=== PATIENT | female | born 1945 | race Two or more races ===

== ENCOUNTER 2017-03-10 23:16 | Emergency (ER) | payer MEDICARE, MEDICAID ==
[~2017-03-10] VITALS: Ht 157.5 cm; Wt 51.7 kg
[~2017-03-10 23:16] MED LIST: LEVO25TA9 PO
--- NOTE | 2017-03-11 00:04 | NUR ---
DR. CUBA AT BEDSIDE FOR MSE.
[2017-03-11] MEDS ORDERED: FAMOTIDINE 20 MG TABLET PO ONE (00:30)
[2017-03-11] MEDS ORDERED: predniSONE 20 MG TABLET PO ONE (00:30)
[2017-03-11] MEDS ORDERED: CETIRIZINE HCL 10 MG TABLET PO ONE (00:30)
[2017-03-11] MEDS ORDERED: CETIRIZINE HCL 10 MG TABLET ONE (00:59)
[2017-03-11] MEDS ORDERED: FAMOTIDINE 20 MG TABLET ONE (01:00)
[2017-03-11] MEDS ORDERED: predniSONE 20 MG TABLET ONE (01:00)
--- NOTE | 2017-03-11 01:06 | NUR ---
Patient discharged to home in stable conditon. Written and verbal after care instructions given. Patient verbalizes understanding of instructions. PATIENT LEFT WITH STABLE GAIT.
[2017-03-11 01:07] VITALS: BP 124/72
== END 2017-03-11 01:07 | disposition home or self-care (01) ==
LOC: ER 23:16
DX: L50.9 Urticaria, unspecified (principal)
CPT/HCPCS: A4663; J7512

== ENCOUNTER 2018-12-17 22:28 | Emergency (ER) | payer MEDICARE, MEDICAID ==
[~2018-12-17] VITALS: Ht 157.5 cm; Wt 53.1 kg
[2018-12-17] MEDS ORDERED: TDAP DIPH,PERTUSS,TET VAC/PF 0.5 ML DISP.SYRIN IM ONE ×2 (23:00→23:03)
[2018-12-17] MEDS ORDERED: NEOMY/BACITRA/POLYMYXIN B OINT UD PACKET TP ONE ×2 (23:00→23:03)
[2018-12-17] MEDS ORDERED: AMOXICILLIN-CLAVUL 875-125MG TABLET PO ONE (23:00)
[2018-12-17] MEDS ORDERED: AMOXICILLIN-CLAVUL 875-125MG TABLET ONE (23:04)
--- NOTE | 2018-12-17 23:25 | NUR ---
DPatient discharged to home in stable conditon. Written and verbal after care instructions given. Patient verbalizes understanding of instructions. patient self-ambulatory. patient personal belonging and exit care package taken with patient. Patient alert an oriented and has good understanding of medication prescription and dischage instruction.
[2018-12-17 23:29] VITALS: BP 118/75
== END 2018-12-17 23:19 | disposition home or self-care (01) ==
LOC: ER 22:28
DX: S81.851A Open bite, right lower leg, initial encounter (principal); F32.9 Major depressive disorder, single episode, unspecified; F41.9 Anxiety disorder, unspecified; Z91.041 Radiographic dye allergy status; Z79.899 Other long term (current) drug therapy; W55.01XA Bitten by cat, initial encounter; Y93.89 Activity, other specified; Y92.89 Other specified places as the place of occurrence of the external cause; Y99.8 Other external cause status
CPT/HCPCS: 90715; A4217; A4663

== ENCOUNTER 2021-07-03 16:27 | Emergency (ER) | payer MEDICARE, OTHER ==
[~2021-07-03] VITALS: Ht 157.5 cm; Wt 61.2 kg
[2021-07-03] MEDS ORDERED: OMNICEF PO (16:47)
[2021-07-03 16:53] LABS: *BILIRUBIN,URIN NEGATIVE (NEGATIVE); *CLARITY,URINE CLEAR (CLEAR); *COLOR,URINE YELLOW (YELLOW); *KETONES,URINE NEGATIVE (NEGATIVE); *UROBILINOGEN,URINE 0.2 E.U./dl (NORMAL); LEUKOCYTE ESTERASE ,URINE NEGATIVE (NEGATIVE); NITRITE, URINE NEGATIVE (NEGATIVE); UGLUCOSE NEGATIVE (NEGATIVE)
[2021-07-03 16:54] LABS: *BLOOD, URINE TRACE (NEGATIVE)
[2021-07-03] MEDS ORDERED: ESTR1VAG VG (17:12)
[2021-07-03] MEDS ORDERED: SULF1TAB48 PO (17:12)
--- NOTE | 2021-07-03 17:29 | NUR ---
patient was seen by . urine sent to lab. DC, RX AND FOLLOW UP INSTRUCTIONS GIVEN AND EXPLAINED TO PATIENT WHO STATES SHE UNDERSTANDS ALL INSTRUCTIONS
[2021-07-03 18:33] LABS: BACTERIA,URINE NONE SEEN /HPF (NONE SEEN); SQUAMOUS EPITHELIAL CELL,UR FEW /HPF (NONE SEEN); WBC,URINE 0-3 /HPF (0-3)
== END 2021-07-03 17:29 | disposition home or self-care (01) ==
LOC: ER 16:30
DX: L03.115 Cellulitis of right lower limb (principal); N39.0 Urinary tract infection, site not specified; Z87.440 Personal history of urinary (tract) infections; Z91.041 Radiographic dye allergy status
CPT/HCPCS: 87086; A4663

== ENCOUNTER 2021-09-06 17:05 | Emergency (ER) | payer MEDICARE, OTHER ==
[~2021-09-06] VITALS: Ht 157.5 cm; Wt 61.2 kg
[~2021-09-06 17:05] MED LIST changes: +ESTR1VAG VG; +OMNICEF PO; +SULF1TAB48 PO
[2021-09-06 17:27] LABS: *BILIRUBIN,URIN NEGATIVE (NEGATIVE); *BLOOD, URINE 1+ (NEGATIVE); *CLARITY,URINE CLEAR (CLEAR); *COLOR,URINE YELLOW (YELLOW); *KETONES,URINE NEGATIVE (NEGATIVE); *UROBILINOGEN,URINE 0.2 E.U./dl (NORMAL); LEUKOCYTE ESTERASE ,URINE NEGATIVE (NEGATIVE); NITRITE, URINE NEGATIVE (NEGATIVE); PH,URINE 5.5 (5.0-8.0); UGLUCOSE NEGATIVE (NEGATIVE)
[2021-09-06] MEDS ORDERED: ASPI81TA31 PO (17:33)
[2021-09-06 17:46] LABS: HEMATOCRIT 33.3 % (31.2-41.9); MEAN CORPUSCULAR VOLUME 92.5 fL (75.5-95.3); PLATELET COUNT (AUTO) 242 K/uL (179-408)
[2021-09-06 17:55] LABS: BILIRUBIN,TOTAL 0.2 mg/dL (0.2-1.0); CREATININE 1.1 mg/dL (0.6-1.3); POTASSIUM 4.5 mmol/L (3.5-5.1); TOTAL PROTEIN, SERUM 6.4 g/dL (6.4-8.2)
[2021-09-06] MEDS ORDERED: KETOROLAC TROMETHAMINE 30 MG INJ IM ONE (18:15)
[2021-09-06] MEDS ORDERED: CEPH500C2 PO (18:26)
--- NOTE | 2021-09-06 18:41 | NUR ---
PT WAS EVALUATED BY DR SANTANA. PT WAS D/C'd TO HOME. D/C INSTRUCTIONS GIVEN TO THE PT BY DR SANTANA.
[2021-09-06 18:47] VITALS: BP 131/79
[2021-09-06 19:18] LABS: WBC,URINE 0-3 /HPF (0-3)
[2021-09-06 19:19] LABS: BACTERIA,URINE NONE SEEN /HPF (NONE SEEN); SQUAMOUS EPITHELIAL CELL,UR FEW /HPF (NONE SEEN)
== END 2021-09-06 18:48 | disposition home or self-care (01) ==
LOC: ER 17:10
DX: R30.0 Dysuria (principal); Z87.440 Personal history of urinary (tract) infections; Z79.82 Long term (current) use of aspirin; Z79.890 Hormone replacement therapy
CPT/HCPCS: 36415; 85025; 87086; A4663

== ENCOUNTER 2021-09-25 17:49 | Emergency (ER) | payer MEDICARE, OTHER ==
[~2021-09-25] VITALS: Ht 167.6 cm; Wt 65.8 kg
[~2021-09-25 17:49] MED LIST changes: +ASPI81TA31 PO; +CEPH500C2 PO; -OMNICEF PO; -SULF1TAB48 PO
[2021-09-25 18:35] LABS: *BILIRUBIN,URIN NEGATIVE (NEGATIVE); *BLOOD, URINE 1+ (NEGATIVE); *CLARITY,URINE CLOUDY (CLEAR); *COLOR,URINE YELLOW (YELLOW); *KETONES,URINE 1+ (NEGATIVE); *UROBILINOGEN,URINE 0.2 E.U./dl (NORMAL); LEUKOCYTE ESTERASE ,URINE TRACE (NEGATIVE); NITRITE, URINE NEGATIVE (NEGATIVE); PH,URINE 5.5 (5.0-8.0); UGLUCOSE NEGATIVE (NEGATIVE)
--- NOTE | 2021-09-25 19:12 | NUR ---
Patient eloped from facility. ER physician notified.
[2021-09-25 21:13] LABS: BACTERIA,URINE FEW /HPF (NONE SEEN); SQUAMOUS EPITHELIAL CELL,UR MANY /HPF (NONE SEEN)
== END 2021-09-25 19:14 | disposition left against medical advice (07) ==
LOC: ER 17:52
DX: R30.0 Dysuria (principal); M54.9 Dorsalgia, unspecified; Z86.16 Personal history of COVID-19; Z88.4 Allergy status to anesthetic agent; Z91.041 Radiographic dye allergy status; H91.90 Unspecified hearing loss, unspecified ear; Z87.440 Personal history of urinary (tract) infections
CPT/HCPCS: 87086; A4663

== ENCOUNTER 2022-06-06 17:30 | Emergency (ER) | payer MEDICARE, OTHER ==
[~2022-06-06] VITALS: Ht 167.6 cm; Wt 64.4 kg
[2022-06-06] MEDS ORDERED: CARB1TAB31 PO (17:52)
[2022-06-06] MEDS ORDERED: CIPRO (17:52)
[2022-06-06] MEDS ORDERED: KETOROLAC TROMETHAMINE 15 MG INJ IVP ONE (18:00)
[2022-06-06] MEDS ORDERED: IV NORMAL SALINE 1000 ML BAG IV ONE (18:00)
[2022-06-06 18:27] LABS: *BILIRUBIN,URIN NEGATIVE (NEGATIVE); *BLOOD, URINE 1+ (NEGATIVE); *CLARITY,URINE CLEAR (CLEAR); *COLOR,URINE YELLOW (YELLOW); *KETONES,URINE NEGATIVE (NEGATIVE); *UROBILINOGEN,URINE 0.2 E.U./dl (NORMAL); LEUKOCYTE ESTERASE ,URINE NEGATIVE (NEGATIVE); NITRITE, URINE NEGATIVE (NEGATIVE); UGLUCOSE NEGATIVE (NEGATIVE)
--- NOTE | 2022-06-06 18:28 | NUR ---
[employer] assumes care: 1st contact with patient, AOx4, calm and breathing easily c/o left lower back pains and "UTI" symptoms. Urine specimen was collected by MD himself and sent to lab.
[2022-06-06] MEDS ORDERED: CEFTRIAXONE 1 G in IV DEXTROSE 5% 50 ML IV ONE (18:30)
[2022-06-06] MEDS ORDERED: KETOROLAC TROMETHAMINE 15 MG INJ ONE (18:30)
[2022-06-06] MEDS ORDERED: CEPH500C2 PO (18:32)
[2022-06-06] MEDS ORDERED: IBUP-1955 PO (18:32)
[2022-06-06] MEDS ORDERED: CYCL5TAB PO (18:32)
--- NOTE | 2022-06-06 18:35 | NUR ---
Patient is refusing all IV medicines, Celso JOHNSON notified.
--- NOTE | 2022-06-06 18:45 | NUR ---
Patient said, "Let me investigate the medicines." Patient is unsure again if she wants vs refusing ROCEPHIN and TORADOL at this time. Dr Miller notified.
--- NOTE | 2022-06-06 19:03 | NUR ---
Nursing SBAR given to RN Joyce and registry nurse Dyllan.
[2022-06-07 01:55] LABS: BACTERIA,URINE NONE SEEN /HPF (NONE SEEN); SQUAMOUS EPITHELIAL CELL,UR FEW /HPF (NONE SEEN); WBC,URINE 0-3 /HPF (0-3)
== END 2022-06-06 20:09 | disposition home or self-care (01) ==
LOC: ER 17:30
DX: M54.42 Lumbago with sciatica, left side (principal); N39.0 Urinary tract infection, site not specified; E03.9 Hypothyroidism, unspecified; Z79.890 Hormone replacement therapy; Z91.041 Radiographic dye allergy status; Z87.440 Personal history of urinary (tract) infections
CPT/HCPCS: A4663; J1885; J7040

== ENCOUNTER 2023-01-28 18:31 | Emergency (ER) | payer MEDICARE, OTHER ==
[~2023-01-28] VITALS: Ht 157.5 cm; Wt 55.3 kg
[~2023-01-28 18:31] MED LIST changes: +CARB1TAB31 PO; +CIPRO; +CYCL5TAB PO; +IBUP-1955 PO
[2023-01-28] MEDS ORDERED: KETOROLAC TROMETHAMINE 30 MG INJ IM ONE (19:00)
[2023-01-28] MEDS ORDERED: KETOROLAC TROMETHAMINE 30 MG INJ ONE (19:34)
[2023-01-28 20:24] LABS: *BILIRUBIN,URIN NEGATIVE (NEGATIVE); *BLOOD, URINE NEGATIVE (NEGATIVE); *CLARITY,URINE CLEAR (CLEAR); *COLOR,URINE YELLOW (YELLOW); *KETONES,URINE TRACE (NEGATIVE); *PROTEIN,URINE NEGATIVE (NEGATIVE); *UROBILINOGEN,URINE 0.2 E.U./dl (NORMAL); LEUKOCYTE ESTERASE ,URINE NEGATIVE (NEGATIVE); NITRITE, URINE NEGATIVE (NEGATIVE); UGLUCOSE NEGATIVE (NEGATIVE)
[2023-01-28] MEDS ORDERED: PRED20TA PO (20:47)
[2023-01-28] MEDS ORDERED: CYCL5TAB PO (20:47)
[2023-01-28 20:50] LABS: BACTERIA,URINE FEW /HPF (NONE SEEN); RBC,URINE 0-3 /HPF (0-3); SQUAMOUS EPITHELIAL CELL,UR MODERATE /HPF (NONE SEEN); WBC,URINE NONE SEEN /HPF (0-3)
[2023-01-28 21:10] VITALS: BP 125/74; TEMP 98; O2SAT 97
[2023-01-29] MEDS ORDERED: GABA-532 PO (21:58)
== END 2023-01-28 21:12 | disposition home or self-care (01) ==
LOC: ER 18:37
DX: M54.50 Low back pain, unspecified (principal); M54.16 Radiculopathy, lumbar region; E03.9 Hypothyroidism, unspecified; Z91.041 Radiographic dye allergy status; Z88.8 Allergy status to other drugs, medicaments and biological substances; Z79.82 Long term (current) use of aspirin; Z79.899 Other long term (current) drug therapy
CPT/HCPCS: 99284; 81001; 82962; 72100; 96372; J1885; A4663

== ENCOUNTER 2023-01-29 20:30 | Emergency (ER) | payer MEDICARE, OTHER ==
[~2023-01-29] VITALS: Ht 157.5 cm; Wt 55.3 kg
[~2023-01-29 20:30] MED LIST changes: +PRED20TA PO
[2023-01-29 20:34] VITALS: O2SAT 98
[2023-01-29] MEDS ORDERED: KETOROLAC TROMETHAMINE 30 MG INJ ONE (21:10)
[2023-01-29] MEDS ORDERED: KETOROLAC TROMETHAMINE 30 MG INJ IM ONE (21:15)
[2023-01-29] MEDS ORDERED: GABA-532 PO (21:58)
== END 2023-01-29 22:09 | disposition home or self-care (01) ==
LOC: ER 20:39
DX: G57.01 Lesion of sciatic nerve, right lower limb (principal); E03.9 Hypothyroidism, unspecified; Z91.041 Radiographic dye allergy status; Z88.8 Allergy status to other drugs, medicaments and biological substances; Z79.899 Other long term (current) drug therapy; Z79.1 Long term (current) use of non-steroidal anti-inflammatories (NSAID); Z79.82 Long term (current) use of aspirin
CPT/HCPCS: 99283; 96372; J1885; A4663